=== PATIENT | female | born 1980 | race African-American/Black ===

== ENCOUNTER 2022-01-12 17:25 | Emergency (ER) | payer OTHER, SELFPAY ==
--- NOTE | 2022-01-12 17:30 | XRR_ITS ---
PROCEDURE INFORMATION: Exam: XR Chest Exam date and time: 01/12/2022 5:39 PM Age: 41 years old Clinical indication: Sternal or substernal pain; Additional info: Chest pain TECHNIQUE: Imaging protocol: XR of the chest. Views: 2 views. COMPARISON: No relevant prior studies available. FINDINGS: Lungs: Unremarkable. No consolidation. Pleural spaces: Unremarkable. No pleural effusion. No pneumothorax. Heart/Mediastinum: Unremarkable. No cardiomegaly. Bones/joints: Visualized osseous structures are intact. XR/XR chest 2V* [id number] IMPRESSION: No acute findings.
--- NOTE | 2022-01-12 17:30 | ECG_ITS ---
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 Measurements Intervals Osprey Rate: 66 P: 40 CO: 134 QRS: 0 QRSD: 94 T: -3 QT: 394 QTc: 413 Interpretive Statements SINUS RHYTHM WITH OCCASIONAL VENTRICULAR PREMATURE COMPLEXES WITH OCCASIONAL SUPRAVENTRICULAR PREMATURE COMPLEXES LOW QRS VOLTAGE IN PRECORDIAL LEADS [QRS DEFLECTION < 1.0 mV IN CHEST LEADS] MODERATE T-WAVE ABNORMALITY, CONSIDER ANTERIOR ISCHEMIA [-0.1+ mV T-WAVE IN V3/V4] No previous ECG available for comparison Electronically Signed On 01-12-2022 23:02:24 CDT by Lisbet Smith M.D. [id number]
[2022-01-12 17:33] VITALS: BP 159/117; PULSE 79; RESP 18; TEMP 36.8; O2SAT 100; BMI 32.2
--- NOTE | 2022-01-12 17:38 | XRR_ITS ---
PROCEDURE INFORMATION: Exam: XR Left Shoulder Exam date and time: 01/12/2022 5:47 PM Age: 41 years old Clinical indication: Pain; Shoulder; Left; Additional info: Shoulder pain TECHNIQUE: Imaging protocol: XR Left shoulder. Views: 2 or more views. COMPARISON: CR (CHEST, ) 01/12/2022 5:39 PM FINDINGS: Bones/joints: Osseous structures are intact. Negative for fracture. Joint spaces are preserved. Soft tissues: Normal. XR/XR shoulder LT min 2V* [id number] IMPRESSION: No acute findings.
--- NOTE | 2022-01-12 17:38 | XRR_ITS ---
PROCEDURE INFORMATION: Exam: XR Left Wrist Exam date and time: 01/12/2022 5:53 PM Age: 41 years old Clinical indication: Pain; Wrist; Left; Additional info: Wrist pain TECHNIQUE: Imaging protocol: XR Left wrist. Views: 1 or 2 views. COMPARISON: No relevant prior studies available. FINDINGS: Bones/joints: Osseous structures are intact. Negative for fracture. Joint spaces are preserved. Soft tissues: Normal. XR/XR wrist LT 2V [id number] IMPRESSION: No acute findings.
--- NOTE | 2022-01-12 17:38 | XRR_ITS ---
PROCEDURE INFORMATION: Exam: XR Right Shoulder Exam date and time: 01/12/2022 5:51 PM Age: 41 years old Clinical indication: Pain; Shoulder; Right; Additional info: Shoulder pain TECHNIQUE: Imaging protocol: XR Right shoulder. Views: 2 or more views. COMPARISON: CR (CHEST, ) 01/12/2022 5:39 PM FINDINGS: Bones/joints: Widening of the acromioclavicular joint space by 1.6 cm. Osseous structures are intact without fracture. Soft tissues: Normal. XR/XR shoulder RT min 2V* 22502 IMPRESSION: Widening of the acromioclavicular joint space. Finding is nonspecific and could be indicative of old AC joint sprain. If there is no history of trauma, then findings would be suggestive of distal clavicular erosion as can be seen with osteolysis or inflammatory arthropathies among other etiologies.
--- NOTE | 2022-01-12 17:38 | XRR_ITS ---
PROCEDURE INFORMATION: Exam: XR Left Hand Exam date and time: 01/12/2022 5:53 PM Age: 41 years old Clinical indication: Pain; Hand; Left; Additional info: Hand pain TECHNIQUE: Imaging protocol: XR Left hand. Views: 3 or more views. COMPARISON: No relevant prior studies available. FINDINGS: Bones/joints: Osseous structures are intact. Negative for fracture. Joint spaces are preserved. Soft tissues: Normal. XR/XR hand LT min 3V* 98664 IMPRESSION: No acute findings.
--- NOTE | 2022-01-12 17:38 | XRR_ITS ---
PROCEDURE INFORMATION: Exam: XR Cervical Spine Exam date and time: 01/12/2022 5:56 PM Age: 41 years old Clinical indication: Neck pain TECHNIQUE: Imaging protocol: XR of the cervical spine. Views: 2 or 3 views. COMPARISON: CR (CHEST, ) 01/12/2022 5:51 PM FINDINGS: Bones/joints: Normal. No acute fracture. Normal alignment. Soft tissues: Unremarkable. XR/XR cervical spine 3V* 32179 IMPRESSION: No acute findings.
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
[2022-01-12] MEDS: acetaminophen 500 mg Tablet 1000 MG PO (18:04)
[2022-01-12 18:18] VITALS: BP 160/106; PULSE 73; RESP 16; O2SAT 100
[2022-01-12] MEDS: morphine 4 mg/mL SDV 1 mL IVP (18:47)
[2022-01-12 18:48] LABS: Basophils % 0.5 %; Eosinophils # 0.1 10^3/uL (0.0-0.8); Eosinophils % 2.8 %; Hematocrit 36.8 % (37.0-47.0); Hemoglobin 12.9 g/dL (11.5-15.3); Lymphocytes # 1.1 10^3/uL (0.8-4.8); Lymphocytes % 26.3 %; Mean Corpuscular HGB Conc 35.1 g/dL (30.0-36.0); Mean Corpuscular Hemoglobin 31.4 pg (28.0-34.0); Mean Corpuscular Volume 89.5 fl (81-99); Mean Platelet Volume 10.5 fL (7.4-10.4); Monocytes # 0.5 10^3/uL (0.2-0.9); Neutrophils # 2.32 10^3/uL (1.8-7.7); Neutrophils % 58.1 %; Nucleated Red Blood Cells % 0 %; Platelet Count 272 10^3/cmm (130-400); Red Blood Count 4.11 10^6/uL (4.1-5.3); Red Cell Distribution Width 12.3 % (12.1-15.1)
[2022-01-12 19:12] LABS: Anion Gap 15.1 (5-19); Blood Urea Nitrogen 8 mg/dL (6-20); Calcium 9.4 mg/dL (8.5-10.5); Carbon Dioxide 23 mmol/L (22-29); Chloride 104 mmol/L (98-107); Glomerular Filtration Rate 162.9 mL/min (90-130); Glucose 98 mg/dL (65-115); Osmolality Calculated 286 mOsm/kg (285-295); Potassium 3.1 mmol/L (3.5-5.1); Sodium 139 mmol/L (136-145)
[2022-01-12 19:13] LABS: Troponin(5th) Baseline 6 ng/L (0-10)
[2022-01-12] MEDS: ketorolac 30 mg/mL INJ IVP (19:48)
[2022-01-12] MEDS: orphenadrine 30 mg/mL Inj 2 mL 60 MG IVP (19:48)
[2022-01-12 20:00] VITALS: BP 149/87; PULSE 71; RESP 16; O2SAT 100
== END 2022-01-12 20:02 | disposition home or self-care (01) ==
PROVIDERS: Emergency Provider Emergency Medicine
DX: R07.89 Other chest pain (principal); M25.532 Pain in left wrist; M25.512 Pain in left shoulder; M25.511 Pain in right shoulder; M54.2 Cervicalgia; V43.52XA Car driver injured in collision with other type car in traffic accident, initial encounter
CPT/HCPCS: 71046; 72040; 73030; 73100; 73130; 80048; 84484; 85025; 93005; 96374; 96375; 99283; J1885; J2270; J2360